=== PATIENT | male | born 1980 | race Caucasian/White ===

== ENCOUNTER 2017-06-29 07:33 | Emergency (ER) | payer OTHER, BC ==
[~2017-06-29] VITALS: Ht 182.9 cm; Wt 88.9 kg
[2017-06-29] MEDS ORDERED: IV NORMAL SALINE 1,000ML 1,000 ML IV SCH (07:49)
[2017-06-29] MEDS ORDERED: cefTRIAXone SODIUM 1 GM VIAL IV ONE (07:56)
[2017-06-29] MEDS ORDERED: IV NORMAL SALINE 50ML 50 ML ONE (07:56)
[2017-06-29] MEDS: HYDROmorphone PF 1 MG/ML DISP.SYRIN IV/SQ PRN ×2 (08:14→09:19)
[2017-06-29] MEDS ORDERED: ONDANSETRON ODT 4 MG TAB.RAPDIS PO ONE ×2 (08:20→09:40)
[2017-06-29] MEDS ORDERED: DIPHTH,PERTUSS(ACELL),TET TOX 0.5 ML DISP.SYRIN. VAX IM ONE (08:20)
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
[2017-06-29] MEDS ORDERED: OXYC-327 PO (09:08)
[2017-06-29] MEDS ORDERED: SILV20CR14 TP (09:08)
[2017-06-29] MEDS ORDERED: CEPH500T PO (09:08)
[2017-06-29 09:30] VITALS: BP 140/94
[2017-06-29] MEDS ORDERED: oxyCODONE/APAP 10/325 1 TAB TABLET PO ONE (09:40)
[2017-06-29] MEDS ORDERED: silver sulfADIAZINE 1% CREAM 50GM JAR. TP ONE (09:40)
== END 2017-06-29 09:45 | disposition home or self-care (01) ==
LOC: ER 07:33
DX: T22.212A Burn of second degree of left forearm, initial encounter (principal); T31.0 Burns involving less than 10% of body surface; X12.XXXA Contact with other hot fluids, initial encounter; Y93.89 Activity, other specified; Y99.8 Other external cause status; Y92.89 Other specified places as the place of occurrence of the external cause
CPT/HCPCS: 90471; 90715; 96365; 96375; 96376; 99284; J0696; J1170; Q0162; 10060; J7030

== ENCOUNTER 2017-07-02 06:02 | Emergency (ER) | payer OTHER, BC ==
[~2017-07-02] VITALS: Ht 182.9 cm; Wt 88.9 kg
[~2017-07-02 06:02] MED LIST: CEPH500T PO; OXYC-327 PO; SILV20CR14 TP
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
== END 2017-07-02 06:55 | disposition home or self-care (01) ==
LOC: ER 06:02
DX: T22.612A Corrosion of second degree of left forearm, initial encounter (principal); T32.0 Corrosions involving less than 10% of body surface; F12.10 Cannabis abuse, uncomplicated; Y93.89 Activity, other specified; Y92.89 Other specified places as the place of occurrence of the external cause; Y99.8 Other external cause status
CPT/HCPCS: 16020; 99284-25

== ENCOUNTER 2018-10-24 07:21 | Emergency (ER) | payer BC, OTHER ==
[~2018-10-24] VITALS: Ht 185.4 cm; Wt 87.8 kg
[~2018-10-24 07:21] MED LIST changes: -OXYC-327 PO; +OXYC1TAB19 PO
--- NOTE | 2018-10-24 08:10 | PHYS DOC ---
Past History Past Medical History: Other Past Surgical History: Appendectomy Alcohol Use: Occasionally Drug Use: Marijuana Adult General Chief Complaint Chief Complaint: LACERATION/AVULSION [facility] HPI Patient is a 38 year old left-handed male who presents with pinning of right index finger tip laceration. Patient states he using a slicer at his work and cut tip of his right index finger and was not able to stop the bleeding. Patient denies other injuries and focal neurodeficit. The patient is up-to-date with tetanus immunization. Review of Systems Review of Systems Constitutional: Denies fever or chills [] Eyes: Denies change in visual acuity, redness, or eye pain [] HENT: Denies nasal congestion or sore throat [] Respiratory: Denies cough or shortness of breath [] Cardiovascular: No additional information not addressed in HPI [] GI: Denies abdominal pain, nausea, vomiting, bloody stools or diarrhea [] : Denies dysuria or hematuria [] Musculoskeletal: Denies back pain, reports joint pain [] Integument: Denies rash or skin lesions [] Neurologic: Denies headache, focal weakness or sensory changes [] Endocrine: Denies polyuria or polydipsia [] All other systems were reviewed and found to be within normal limits, except as documented in this note. Allergies Allergies Allergies Coded Allergies Type Severity Reaction Last Updated Verified No Known Drug Allergies 10/24/18 No Physical Exam Physical Exam Constitutional: Well developed, well nourished, mild distress, non-toxic appearance. [] HENT: Normocephalic, atraumatic Eyes: PERRLA, EOMI, conjunctiva normal, no discharge. [] Neck: Normal range of motion, no tenderness, supple, no stridor. [] Cardiovascular:Heart rate regular rhythm, no murmur [] Lungs & Thorax: Bilateral breath sounds clear to auscultation [] Extremities: Right index finger with small area of missing skin and oozing blood in tip of finger without neurovascular deficit Neurologic: Alert and oriented X 3, normal motor function, normal sensory function, no focal deficits noted. [] Psychologic: Affect normal, judgement normal, mood normal. [] Current Patient Data Vital Signs Vital Signs Date Time Temp Pulse Resp B/P (MAP) Pulse Ox O2 Delivery O2 Flow Rate FiO2 10/24/18 07:21 98.2 96 18 96 Room Air EKG EKG [] Radiology/Procedures Radiology/Procedures [] Course & Med Decision Making Course & Med Decision Making Evaluation of patient in ER showed 38-year-old male patient with laceration of tip of index finger that was repaired with Dermabond and Steri-Strip. Dragon Disclaimer Dragon Disclaimer This electronic medical record was generated, in whole or in part, using a voice recognition dictation system. Departure Departure: Impression: Primary Impression: Laceration of finger of right hand Disposition: HOME, SELF-CARE (at 0809) Condition: IMPROVED Referrals: PCP,NO (PCP) Patient Instructions: Fingertip Laceration, Tissue Adhesive Wound Care Additional Instructions: Keep wound clean and dry Follow-up with your primary care physician in 3-5 days Return to ER if not getting better Laceration Repair Lac Repair Indication: Index finger laceration Procedure: The patient was placed in the appropriate position and laceration of tip of finger was repaired with Dermabond and Steri-Strip. Total repaired wound length: [TOTAL REPAIR LENGTH]. Other Items: 1 cm The patient tolerated the procedure well . Complications: none. KAVIN HEREDIA MD Oct 24, 2018 08:10
[2018-10-24 08:21] VITALS: BP 123/87
== END 2018-10-24 08:20 | disposition home or self-care (01) ==
LOC: ER 07:56
DX: S61.210A Laceration without foreign body of right index finger without damage to nail, initial encounter (principal); W26.8XXA Contact with other sharp object(s), not elsewhere classified, initial encounter; Y93.89 Activity, other specified; Y92.89 Other specified places as the place of occurrence of the external cause; Y99.8 Other external cause status
CPT/HCPCS: 12001; 99283